=== PATIENT | female | born 2005 | race Caucasian/White ===

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

== ENCOUNTER 2025-03-17 17:30 | Emergency (ER) | payer OTHER, SELFPAY ==
[2025-03-17 17:33] VITALS: BP 130/79; PULSE 76; TEMP 36.7; O2SAT 98; BMI 23.2
--- NOTE | 2025-03-17 17:47 | XR_ITS ---
The [address] [address] Patient Name: CHI DANIELS MRN: [id number] date: 2005 Sex: F Assigned Patient Location: ER Current Patient Location: Accession/Order Number: [id number] Exam Date: 03/17/2025 17:56 Report Date: 03/17/2025 19:36 At the request of: ERNA BRITTON Procedure: XR chest 1V PA CHEST: CLINICAL HISTORY: Cough, purulent sputum COMPARISON: 06/18/2024 Findings: Unremarkable cardiomediastinal silhouette. Lungs are clear. No effusion or pneumothorax. XR/XR chest 1V IMPRESSION: NEGATIVE FOR ACUTE PLEURAL-PARENCHYMAL DISEASE Impression dictated by: Jonah Zapata M.D. 03/17/2025 7:36 PM Dictation Location: [place] [address] Electronically authenticated by: [id number] Y Date: 03/17/2025 19:36
--- NOTE | 2025-03-17 17:51 | ED_ITS ---
HPI HPI - General Adult General Chief complaint: Upper Respiratory Infection Stated complaint: VOMITING, FEVER, COUGH, Time Seen by Provider: 03/17/25 17:40 Source: patient Mode of arrival: walk-in History of Present Illness HPI narrative: Patient is a 19-year-old female who presents with 2 weeks of sneezing and nausea, in the past 2 days she started to vomit approximately 4-5 times. She has not vomited today and has been able to keep down p.o. fluids and food. She also has a sore throat, cough, runny nose, and reports she had a fever yesterday, did not take her temperature. Last period was 4 weeks ago. Related Data Home Medications ?Medication ?Instructions ?Recorded ?Confirmed No Known Home Medications 03/17/2502/21 Allergies Allergy/AdvReac Type Severity Reaction Status Date / Time No Known Drug Allergies Allergy Verified 03/17/25 17:33 Opioid HPI Opioid Management Most Recent Opioid Data: Last Pain Scale 9 Today, 17:39 Last ED Pain Assessment Today, 17:39 Ur Phencyclidine Scrn, (NEGATIVE) Negative , 15:38 Review of Systems ROS Status of ROS 10 or more systems reviewed and unremark able except as noted in history and below PFSH PFS Medical History (Updated 03/17/25 @ 18:57 by TOBI Flores) Asthma ?J45.909 - Unspecified asthma, uncomplicated (ICD-10) No pertinent past medical history ?Z78.9 - Other specified health status (ICD-10) Surgical History (Updated 02/07/23 @ 12:48 by Bill Gomez) No pertinent past surgical history ?Z78.9 - Other specified health status (ICD-10) Social History (Updated 03/17/25 @ 17:39 by Andreea Rodriguez RN) Smoking status: Current every day smoker Non-prescribed substance use: cannabis (any form) Little interest or pleasure in doing things: not at all Feeling down, depressed, or hopeless: not at all Exam Narrative Exam Narrative: General: No distress, age-appropriate Skin: Warm, dry, no pallor. No rash. Head: Normocephalic, atraumatic. Neck: Supple, non-tender. Eye: Pupils are equal, round and EOMI. No scleral icterus. Ears, Nose, Mouth, and Throat: TMs pearly mckeon and intact, no signs of infection. No nasal mucosal hypertrophy. Oral mucosa is moist, mild posterior oropharynx erythema, no tonsillar exudates, uvula is mid-line Cardiovascular: Regular Rate and Rhythm without murmur, gallop or rub. Respiratory: No accessory muscle use or respiratory distress. Lungs are clear to auscultation, no wheezing, rales, mild rhonchi bilaterally, cleared with cough Chest Wall: no tenderness Musculoskeletal: Full ROM of all extremities, no calf or popliteal tenderness GI: Abdomen is soft, non-distended, non tender to palpation. No masses appreciated. No rebound, guarding, or rigidity noted. Neurological: A&O x4. No cranial nerve dysfunction observed. No truncal a taxia. Moves all extremities. Sensation intact. Psychiatric: Cooperative and interactive. Normal mood and affect. Constitutional Vital Signs, click to edit/add: Last Vital Signs Temp 98.0 F 03/17/25 17:33 Pulse 76 03/17/25 17:33 Resp 18 03/17/25 17:33 BP 130/79 03/17/25 17:33 Pulse Ox 98 03/17/25 17:33 O2 Del Method Room Air 03/17/25 17:33 Documenting provider has reviewed patient's vital signs: yes Course Vital Signs Vital signs: Vital Signs Temperature 98.0 F 03/17/25 17:33 Pulse Rate 76 03/17/25 17:33 Respiratory Rate 18 03/17/25 17:33 Blood Pressure 130/79 03/17/25 17:33 Pulse Oximetry 98 03/17/25 17:33 Oxygen Delivery Method Room Air 03/17/25 17:33 Temperature 98.0 F 03/17/25 17:33 Pulse Rate 76 03/17/25 17:33 Respiratory Rate 18 03/17/25 17:33 Blood Pressure 130/79 03/17/25 17:33 Pulse Oximetry 98 03/17/25 17:33 Oxygen Delivery Method Room Air 03/17/25 17:33 Medical Decision Making MDM Narrative Medical decision making narrative: 19-year-old female presents with 2 weeks of upper respiratory symptoms including sneezing, sore throat, cough, rhinorrhea, and nausea, with vomiting over the past 2 days (4?5 episodes/day), now improved and able to tolerate oral intake. Patient reports concern about coughing up green mucus. She is afebrile, hemodynamically stable, and in no acute distress. Chest X-ray shows no infiltrates or effusion. COVID-19, influenza, and Group A strep tests are negative. The green mucus is most likely due to viral upper respiratory infection rather than bacterial pneumonia, given the absence of fever, hypoxia, or consolidation on imaging. Symptoms are consistent with post-viral bronchial secretions; antibiotics not indicated at this time. Patient counseled on supportive care including hydration, antitussives as needed, nasal saline, and monitoring for red-flag symptoms. Return precautions reviewed for worsening cough, persistent fever, shortness of breath, or inability to tolerate oral int mahin. Patient discharged in stable condition with plan for follow-up with PCP. Differential Diagnosis Differential Diagnosis: Viral URI, PNA, Strep Pharyngitis, COVID, Influenza Lab Data Lab results reviewed: Yes I reviewed the patient's lab results Labs: Lab Results 03/17/25 Range/Units 17:52 Influenza Type A Ag Negative Influenza Type B Ag Negative SARS-CoV-2 Ag (CV2AG) Negative (NEGATIVE) Streptococcus Screen Negative Imaging Data Chest x-ray: Attestation: I have reviewed the pertinent imaging results. Radiologist's impression: ITS Impressions Chest X-Ray 03/17/25 17:47 IMPRESSION: NEGATIVE FOR ACUTE PLEURAL-PARENCHYMAL DISEASE Impression dictated by: Jonah Zapata M.D. 03/17/2025 7:36 PM Dictation Location: [place] [id number] Electronically authenticated by: [id number] Y Date: 03/17/2025 19:36 Discharge Plan Discharge Chief Complaint: Upper Respiratory Infection Clinical Impression: Upper respiratory infection Patient Disposition: Home, Self-Care Time of Disposition Decision: 18:55 Condition: Good Mode of Transportation: Private Vehicle Prescriptions / Home Meds: No Action No Known Home Medications Print Language: [place]an Instructions: Upper Respiratory Infection (ED) Additional Instructions: * Hydration: Drink plenty of fluids (water, electrolyte drinks). * Fever / Pain: * Acetaminophen 650?1000 mg every 6 hours as needed * OR ibuprofen 400?600 mg every 6?8 hours with food * Cough / Congestion: * Saline nasal spray * Humidifier or steam * Throat lozenges or warm tea with honey * Diet: Start with bland foods and advance as tolerated. What to Expect This illness is most consistent with a viral infection. Symptoms such as cough, congestion, sore throat, and mild nausea may continue for several days but should gradually improve. Follow-Up * Follow up with your primary care provider in 3?5 days or sooner if symptoms are not improving. Return to the ER Immediately If You Develop: * Persistent vomiting or inability to keep fluids down * Signs of dehydration (dizziness, very little urine, dry mouth) * Worsening breathing problems, shortness of breath, chest pain * High fever that does not improve with medication * Severe abdominal pain * Any new or concerning symptoms Referrals: Arthur Agrawal MD [Primary Care Provider, [facility]] - 1 week Discharge Date/Time: 03/17/25 19:10
[2025-03-17 18:14] LABS: SARS-CoV-2 Ag NEGATIVE (NEGATIVE)
--- OUTSIDE RECORDS SUMMARY | 2025-03-17 18:17 | XMS_ITS | CCD ---
Author Organization [facility] Care Team Providers Care Rheumatologist Name Role Phone TED, DR ARTHUR Parker Admitting Unavailable NADERER, DR ARTHUR Parker Primary Care Unavailable NADERER, DR ARTHUR Parker Consulting Unavailable NADERER, DR ARTHUR Parker Attending Unavailable AP TRAN Admitting Unavailable NADERER, DR ARTHUR Parker Primary Care Unavailable CHELSEA, AP Consulting Unavailable AP TRAN Attending Unavailable NADERER, DR ARTHUR Parker Admitting Unavailable NADERER, DR ARTHUR Parker Primary Care Unavailable Ziebtawana, DR Peña Consulting Unavailable NADERER, DR ARTHUR Parker Attending Unavailable NADERER, DR ARTHUR Parker Consulting Unavailable NADERER, DR ARTHUR Parker Admitting Unavailable NADERER, DR ARTHUR Parker Primary Care Unavailable Ziebtawana, DR Peña Consulting Unavailable NADERER, DR ARTHUR Parker Attending Unavailable NADERER, DR ARTHUR Parker Consulting Unavailable Bishnu, Nay Consulting Unavailable NADERER, DR ARTHUR Parker Admitting Unavailable NADERER, DR ARTHUR Parker Primary Care Unavailable NADERER, DR ARTHUR Parker Attending Unavailable EDNA, ARY Urbano Attending Unavailable NADERER, ARTHUR Referring Unavailable TED, ARTHUR Primary Care Unavailable Arthur Agrawal MD Primary Care Provider [phone] Arthur Agrawal Primary Care Unavailable Brooks Perdomo Admitting Unavailable Brooks Perdomo Attending Unavailable Medications Current Medications MedicationDrug Class(es)DatesSig (Normalized)Sig (Original)[id number] 200 actuat albuterol 0.09 mg/actuat metered dose inhaler (6 sources)beta2-Adrenergic AgonistStart: 55-36-0041sqvr 2 puff(s) by inhalation every four hours for wheezingalbuterol HFA 90 mcg/act inhaler Inhale 2 puffs every 4 (four) hours if needed for shortness of breath or wheezing 05/21/2023 ActiveStart: 20-02-2072ypyw 1 puff(s) by inhalation every six hoursAlbuterol Sulfate (Ventolin Hfa) 90 mcg/actuation Hfa Aerosol Inhaler Active 2 PUFF INHALATION Q6H 1 May 21, 2023 12:00amStart: 05-17-2023 End: 74-27-3592amaz 1 puff(s) by inhalation every four hoursAlbuterol Sulfate Discontinued 1 PUFF INHALATION Q4H May 17, 2023 12:00am May 21, 2023 10:59amcephalexin 500 mg oral capsule (1 source)Cephalosporin AntibacterialStart: 98-12-1841jrwk 500 mg by mouth every eight hoursCephalexin Active 500 MG PO Every 8 hours May 21, 2023 12:00amcitalopram 10 mg oral tablet (2 sources)Serotonin Reuptake InhibitorStart: 75-05-9941jqze 1 tablet by mouth once dailycitalopram (CeleXA) 10 MG tablet Indications: Bipolar 1 disorder, mixed, moderate (CMS/HCC) Take 1 tablet (10 mg) by mouth Daily 30 tablet 2 01/15/2024 ActivepredniSONE 50 mg oral tablet (2 sources)Start: 01-15-2024 End: 23-49-2056bfmb 1 tablet by mouth once dailypredniSONE (Deltasone) 50 MG tablet Indications: Contusion of lumbar spinal region Take 1 tablet (50 mg) by mouth Daily for 6 days 6 tablet 01/15/2024 01/21/2024 ActiveQUEtiapine 25 mg oral tablet (2 sources)Atypical AntipsychoticStart: 01-21-1680ggsc 1 tablet by mouth at bedtimeQUEtiapine (SEROquel) 25 MG tablet Indications: Bipolar 1 disorder, mixed, moderate (CMS/HCC) Take 1 tablet (25 mg) by mouth at bedtime 30 tablet 2 01/15/2024 Active Completed/Discontinued Medications MedicationDrug Class(es)DatesSig (Normalized)Sig (Original)ARIPiprazole 5 mg oral tablet (4 sources)Atypical AntipsychoticStart: 07-16-2022 End: 82-81-4205tprd 1 tablet by mouth in the morningARIPiprazole (Abilify) 5 MG tablet Take 1 tablet by mouth in the morning. 07/16/2022 01/15/2024 Discontinued escitalopram 10 mg oral tablet (4 sources)Serotonin Reuptake InhibitorStart: 07-16-2022 End: 91-87-3652mdgt 1 tablet by mouth in the morningescitalopram (Lexapro) 10 MG tablet Take 1 tablet by mouth in the morning. 07/16/2022 01/15/2024 Discontinued omeprazole 40 mg delayed release oral capsule (4 sources)Proton Pump InhibitorStart: 07-16-2022 End: 58-26-5136bbwb 1 capsule by mouth in the morningomeprazole (PriLOSEC) [address] capsule Take 1 capsule by mouth in the morning. 07/16/2022 01/15/2024 Discontinuedondansetron 4 mg disintegrating oral tablet (4 sources)Serotonin-3 Receptor AntagonistStart: 02-07-2023 End: 37-00-9087xabr 1 tablet by mouth every eight hours as needed for vomiting and nauseaondansetron ODT (Zofran-ODT) 4 MG disintegrating tablet Take 1 tablet by mouth every 8 (eight) hours if needed for vomiting or nausea 02/07/2023 01/15/2024 Discontinuedsertraline 25 mg oral tablet (6 sources)Serotonin Reuptake InhibitorStart: 05-21-2023 End: 65-34-5222bdln 1 tablet by mouth in the morningsertraline (Zoloft) 25 MG tablet Indications: Depression, unspecified depression type (CMS/HCC) Take 1 tablet (25 mg) by mouth in the morning. 30 tablet 3 06/05/2023 01/15/2024 Discontinuedsulfamethoxazole 800 mg / trimethoprim 160 mg oral tablet (4 sources)Dihydrofolate Reductase Inhibitor Antibacterial, Sulfonamide AntimicrobialStart: 04-10-2023 End: 76-65-0927jbsn 1 tablet by mouth once in the morning, then take 1 tablet by mouth once at bedtimesulfamethoxazole-trimethoprim (Bactrim DS) 800-160 MG per tablet Take 1 tablet by mouth in the morning and 1 tablet before bedtime. 04/10/2023 01/15/2024 DiscontinuedtraZODone hydrochloride 50 mg oral tablet (6 sources)Serotonin Reuptake InhibitorStart: 05-21-2023 End: 12-78-7341layg 1 tablet by mouth at bedtimetraZODone (Desyrel) 50 MG tablet Indications: Depression, unspecified depression type (CMS/HCC) Take 1 tablet (50 mg) by mouth at bedtime 30 tablet 3 06/05/2023 01/15/2024 Discontinued Problems Active Problems Problem ClassificationProblemDateDocumented DateEpisodic/ChronicAnxiety disorders (5 sources)Anxiety disorder, unspecified; Translations: [Generalized anxiety disorder]Onset: 492278-04-0726ZpeknnuVcytki (3 sources)Unspecified asthma, uncomplicated; Translations: [Mild intermittent asthma]Onset: 041434-03-7761KfhufpwZmqulbgrfa disorders (2 sources)Gastroesophageal reflux disease without esophagitis; Translations: [Gastro-esophageal reflux disease without esophagitis]Onset: 01-15-2024 43-51-3717SwvkbduBzvohwaui (1 source)Influenza due to other identified influenza virus with other respiratory manifestations; Translations: [FLU D/T OTH ID FLU VIR OTH RSP MANF] Onset: 93-78-6588MjtbbccgCyjkvxnaitdgi mental health disorders (4 sources)Primary insomnia; Translations: [Primary insomnia]Onset: 01-15-2024 30-94-4348IbovpfvKxfr disorders (9 sources)Major depressive disorder; Translations: [Major depressive disorder, single episode, unspecified]Onset: 544625-84-2981RidulqdCqilf aftercare (1 source)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; Translations: [OTH INTERMEDIATE CURRENT DRUG THERAPY]Onset: 32-27-6777ZzcuaaarEyhkdqhmobx injury; contusion (4 sources)Contusion of lower back and pelvis, initial encounter; Translations: [Contusion of back]Onset: 608153-92-2720DiaqqnufIhjwyhxdphua (2 sources)COUGH, UNSPECIFIED; Translations: [COUGH, UNSPECIFIED]Onset: 41-30-7397Iqizualcwxur (3 sources)CONTACT W/AND (SUSP) EXPOS COVID-19; Translations: [CONTACT W/AND (SUSP) EXPOS COVID-19]Onset: 47-92-3589Rdyrh infection (1 source)COVID-19; Translations: [COVID-19]Onset: 05-04-2021 Past or Other Problems Problem ClassificationProblemDateDocumented DateEpisodic/ChronicAbdominal pain (4 sources)Epigastric pain; Translations: [EPIGASTRIC PAIN]Onset: 05-29-2021 EpisodicAdministrative/social admission (1 source)Problems related to education and literacy, unspecified; Translations: [Problems related to education and literacy, unspecified]Onset: 09-03-2022 EpisodicPancreatic disorders (not diabetes) (4 sources)Other specified diseases of pancreas; Translations: [OTHER SPECIFIED DISEASES PANCREAS]Onset: 06-97-8992UmtakyedIplwabanwteu (1 source)COUGH, UNSPECIFIED; Translations: [COUGH, UNSPECIFIED]Onset: 95-70-9680Ishuoajcgeds (1 source)CONTACT W/AND (SUSP) EXPOS COVID-19; Translations: [CONTACT W/AND (SUSP) EXPOS COVID-19]Onset: 04-28-2021 Results Test NameValueInterpretationReference RangeFacilityCovid-19 PCR (CVDTB)on 27-45-3921GVKK-CoV-2 (COVID-19) RNA MARYANA+probe Ql (Unsp spec)Not detectedNormal NOT DETECTEDThe [facility] HospitalComment on above:Result Comment: This test is not yet approved or cleared by the [place] FDA. When there are no FDA- approved or cleared tests available, and other criteria are met, FDA can make tests available under an emergency access mechanism called an Emergency Use Authorization (EUA). The EUA for this test is supported by the [place] of Health and Human Service's (HHS's) declaration [...] of clinical signs and symptoms consistent with SARS-CoV-2.Performed By: #### CVDTBH #### [facility] [address] [place] [address] Dr. Bea BOYCE AGon 46-45-7917SFLGCEFBEZPSD [facility] on above:Result Comment: Negative for Flu B protein antigen. Infection due to Flu B cannot be ruled out. FluB antigen in the sample may be below the detection limit of the test.Performed By: #### INFLUAB #### [facility] [address] [place] [address] Dr. Bea Parker AGPositiveAbnormalNEGATIVE SEE COMMENTThe [facility] on above:Performed By: #### INFLUAB #### [facility] [address] [place] [address] Dr. Bea Day AGNegativeNormalNEGATIVE SEE COMMENTThe [facility] on above:Performed By: #### INFLUAB #### [facility] [address] [place] [address] Dr. Bea SchmidtINFLUPOSHPARUL [facility] on above: Result Comment: NOTE: Live attenuated influenzae vaccine viruses can cause a positive result for a rapid influenza diagnostic test if administered up to 7 days prior to rapid testing.Performed By: #### INFLUAB #### [facility] [address] [place] [address] Dr. Bea SchmidtINTERNAL CONTROLSWithin Normal LimitsNormalWithin Normal Limits The [facility] on above:Performed By: #### INFLUAB #### [facility] [address] [place] [address] Dr. Bea SchmidtCT ABDOMEN W CONon 44-28-2206EL ABDOMEN W CONEXAMINATION: CT ABDOMEN W CON HISTORY: Disorder of [...] Electronically authenticated by: MARY VERDUGO Date: 2021-06-11 08:30NoK[facility] Health Greene MemorialUS SINGLE QUAD RT UPPERon 60-50-0560ZA SINGLE QUAD RT UPPER EXAM: US SINGLE [...] quadrant was unremarkable. Electronically authenticated by: NAY GODOY Date: 2021-05-29 07:54NoKettering Health Greene MemorialCovid-19 PCR (CVDTBH)on 44-48-4337WCPM-CoV-2 (COVID-19) RNA MARYANA+probe Ql (Unsp spec)DetectedCritically abnormalNOT DETECTEDThe [facility] HospitalComment on above:Result Comment: This test is not yet approved or cleared by the [place] FDA. When there are no FDA-approved or cleared tests available, and other criteria are met, FDA can make tests available under an emergency access mechanism called an Emergency Use Authorization (EUA). The EUA for this test is supported by the [place] of Health and Human Service's (HHS's) declaration [...] no longer be used). Performed By: #### CVDTBH #### [facility] [address] [place] [address] Dr. Bea Schmidt Vital Signs Date TimeVital SignValuePerforming OueqvuojjQmcwvmgu00-95-8336 13:44-0400Body ykbtrd743 cmMarritesh Agrawal MD Work Phone: [facility] HospitalLnmlvsidoz60-22-4737 13:44-0400Body mass index (BMI) [Percentile] Per age and sex42.79 %Arthur Agrawal MD Work Phone: [facility] HospitalWlixuxrnba97-99-6982 13:44-0400Body mass index (BMI) [Ratio]20.82 kg/m2Arthur Agrawal MD Work Phone: NOTwo [facility] HospitalBpnodxvszg54-33-5065 13:44-0400Body temperature 97.81 [degF]Arthur Agrawal MD Work Phone: [facility] HospitalQzhqsduiud64-76-4215 13:44-0400Body orvxzy57.06 kgArthur Agrawal MD Work Phone: NOTwo [facility] HospitalJjzbziuqyq39-00-8051 13:44-0400Diastolic blood mm[Hg]Arthur Agrawal MD Work Phone: NOTwo [facility] HospitalRtzwtizqri99-62-1424 13:44-0400Heart ucoh881 /min Arthur Agrawal MD Work Phone: NOTwo [facility] HospitalCuccinkppi66-30-1476 13:44-0400Respiratory rate22 /minArthur Agrawal MD Work Phone: noTwo [facility] Psych[facility] HospitalEaqxfeuyng34-14-0599 13:44-1406TiW5% (BldA) [Mass fraction]96 %Arthur Agrawal MD Work Phone: noTwo [facility] HospitalWnwhjgzieu86-73-3692 13:44-0400Systolic blood fjgcqzqa090 mm[Hg]Arthur Agrawal MD Work Phone: noTwo [facility] HospitalLgjvlmkyue67-60-1653 07:24-0500Body jqpfhobigmd78 [degF]01-30-2024 07:24-0500Diastolic blood uzssmpct61 mm[Hg]01-30-2024 07:24-0500Heart rate67 /[facility]01-30-2024 07:24-0500Respiratory rate16 /[facility]01-30-2024 07:24-6948ZrK2% (BldA) [Mass fraction]95 %01-30-2024 07:24-0500 Systolic blood ptqyqqft755 mm[Hg]01-29-2024 14:26-0500Body thutok998.64 cm01-29-2024 09:00-0500Body .3 kg Encounters Encounter DateEncounter TypeCare ProviderFacilityStart: 01-15-2024 End: 71-56-5151Avwccd flowsHyacinth Agrawal MD Work Phone: [facility]WM FMStart: 01-15-2024 End: 47-17-1487Ifsirg flowsHyacinth Agrawal MD Work Phone: [facility] CW FMStart: 01-15-2024 End: 79-41-4178Ewmhcz outpatient visit 25 minutesArthur Agrawal MD Work Phone: [facility]WM FMComment on above:Contusion of lumbar spinal region (Primary Dx); Bipolar 1 disorder, mixed, moderate (CMS/HCC); KEN (generalized anxiety disorder) (CMS/HCC); Primary insomniaStart: 92-52-5898GhhxtwObtkfme LykinsNOMS CWM FMComment on above:Depression, unspecified depression type (CMS/HCC) (Primary Dx)Start: 05-29-2023 End: 22-62-1548Yerytgfmzk and management of inpatientMarc Ted Facility:[facility]: 05-27-2023 End: 56-77-6196ppdhubqjugYLXB W SEYMOURProMedica Homestead HospitalStart: 13-81-2287Iow-patient / Non-visitFirelands Physician [facility] Work Phone: Start: 04-07-2022 End: 17-96-4475qtextjapkjPMKUCT RODRIGUEZFacility:K2Vqery: 06-10-2021 End: 00-02-5162znbqjamjclJQ ARTHUR Parker NADERERFacility:C5Uivay: 05-29-2021 End: 76-80-4019krmpnhpiplJQ ARTHUR Parker NADERERFacility:Y7Vwutm: 05-20-2021 End: 23-83-8846jheayhzrzsVO ARTHUR A NADERERFacility:H6Bhqqg: 04-28-2021 End: 97-30-6912dyyaxyexzeCX ATRHUR A NADERERFacility:H1 Procedures DateProcedureProcedure DetailPerforming ClinicianStart: 38-89-6799Tgxdzf-up visitFollow-upMARK W EDNA Plan of Treatment DateCare ActivityDetailAuthorStart: 03-16-2024 End: 62-76-2777Uenlbwg encounter soazakqrd97/25/2024 2:00 PM EST Office Visit [facility] [address] [place] [address] Arthur Agrawal MD [address] [place] [address] NOMJuan Jose COLEMAN FMStart: 01-15-2024 End: 48-88-9045Wuoamya encounter xbsagthml24/25/2024 1:45 PM EDT Office Visit [facility] [address] [place] [address] Arthur Agrawal MD [address] [place] [address] ArrivedNOMS CWM FMComment on above:ArrivedStart: 12-11-0117Mrdpixizk vaccinationInfluenza Vaccine (#1)[facility] HealthcareStart: 06-19-2023 End: 30-42-1293Vjtacuy encounter tydwzcuom39/28/2024 1:45 PM EST Office Visit [facility] [address] [place] [address] Arthur Agrawal MD [address] [place] [address] [facility] FMStart: 82-55-2406IsijhnkbnWadsworth-Rittman Hospitaltart: 95-77-3727Distxwou to Social ServicesWadsworth-Rittman Hospitaltart: 73-09-0216Kvpjnjqn admissionWadsworth-Rittman Hospitaltart: 12-21-2022 Influenza vaccinationInfluenza Vaccine (#1)[facility] HealthcarePatient Education Depression, Child and Teen (DC) [facility]ructionsG[facility] Work Phone: Patient referralGlenbeigh Hospital [facility]tr Work Phone: Immunizations Immunization DateImmunizationNotesCare ZvksovmnKusmgcmt36-01-4776fzglkdlka virus vaccine, unspecified formulationCourt [facility] Payers DatePayer CategoryPayerPolicy [id number]-[id number] Health [id number] Health InsuranceUNMERCY [facility] [id number] 2022-Present [address] [address] [place] [id number] 2020Medicaid [employer] [place] [employer] [id number] 2019-Present [address] [place] [id number] 2.16.840.1.447185.3.57[id number] 2.16.840.1.738616.3.57[id number] 2.16.840.1.945237.3.57[id number] 2..840.1.029949.3.579.[id number] 2.16.840.1.093744.3.57[id number] 2.16.840.1.372487.3.579.2.531 Social History DateTypeDetailFacilityStart: 05-18-2023 End: 56-88-8223Wtdqaee smoking status NHISNever smoked tobacco (finding) [facility]: 60-40-9010Xwf Assigned At BirthFemale [facility] Hospitaltart: 63-84-8580Htaqgwg use and exposure Smokeless tobacco non-userNOMS HealthcareStart: 05-22-2023 End: 62-43-2123Rlgdyxk of Social functionNOMS HealthcareStart: 05-22-2023 End: 25-30-2336Pbopwza use panelNOMS HealthcareStart: 42-56-9067Bje Assigned At BirthNot on fileNOIA Healthcare History of Present illness Narrative 01-15-2024 Note Date & YttiNyldHqfszcdu63-75-7953 History of Present illness Narrative* Arthur Agrawal MD - 01/15/2024 2:15 PM EDTAssociated Problem(s): Primary insomnia Not sleeping well and start seroquel. * Arthur Agrawal MD - 01/15/2024 2:15 PM EDTAssociated Problem(s): KEN (generalized anxiety disorder) (CMS/HCC) Severe symptoms and start seroquel and prozac. Warned will take 2-3 weeks to see improvement in mood. * Arthur Agrawal MD - 01/15/2024 2:14 PM EDTAssociated Problem(s): Contusion of lumbar spinal region Recent fall and likely bruise. Treat with prednisone. Ice and use OTC PRN. * Arthur Agrawal MD - 01/15/2024 2:14 PM EDTAssociated Problem(s): Bipolar 1 disorder, mixed, moderate (CMS/HCC) Patient's history consistent with bipolar and start seroquel. Start prozac for depressive symptoms.Warned will take 2-3 weeks to see improvement in mood. * Arthur Agrawal MD - 01/15/2024 1:45 PM EDT Images from the original note were not included. Subjective Patient ID: Maximilian Brewer is a 18 y.o. female who presents for Back Pain (Fell 2 weeks ago). C/o back pain for 2 weeks. Patient passed out and landed on paint can. Pain and bruising on mid lumbar region. Pain with movement such as bending or lifting. No radiation into gluteal region or down legs. Pain to walk or stand. Using ice and tylenol. No improvement since injury. Mood worse. No medication for months because didn't help. Reports episodes of zina. Awake for several days in a row and not tired. Very hyper and restless. Impulsive and hard to control self. Typically followed by severe depression. Down, sad, and no motivation. Not want to do things or be around others. Severe anxiety. Nervous and worry all the time. Stressed out and overwhelmed. Thought racing and hard to clear mind. Steward, irritable and snapping at others. Easily upset and overreact. Not sleeping well and lay in bed for hours. Hard to clear mind to fall asleep. Review of Systems Respiratory: Negative for cough, shortness of breath and wheezing. Cardiovascular: Negative for chest pain and palpitations. Gastrointestinal: Negative for abdominal pain, diarrhea, nausea and vomiting. Genitourinary: Negative for dysuria. Objective Physical Exam Constitutional: General: She is not in acute distress. Appearance: Normal appearance. HENT: Head: Normocephalic. Right Ear: Tympanic membrane normal. Left Ear: Tympanic membrane normal. Eyes: Extraocular Movements: Extraocular movements intact. Pupils: Pupils are equal, round, and reactive to light. Cardiovascular: Rate and Rhythm: Normal rate and regular rhythm. Heart sounds: No murmur heard. No friction rub. No gallop. Pulmonary: Effort: Pulmonary effort is normal. Breath sounds: Normal breath sounds. No wheezing, rhonchi or rales. Abdominal: General: Bowel sounds are normal. There is no distension. Palpations: Abdomen is soft. Tenderness: There is no abdominal tenderness. There is no guarding or rebound. Musculoskeletal: Cervical back: Neck supple. Right lower leg: No edema. Left lower leg: No edema. Neurological: Mental Status: She is alert. Assessment/Plan Problem List Items Addressed This Visit Bipolar 1 disorder, mixed, moderate (CMS/HCC) Patient's history consistent with bipolar and start seroquel. Start prozac for depressive symptoms.Warned will take 2-3 weeks to see improvement in mood. Relevant Medications citalopram (CeleXA) 10 MG tablet QUEtiapine (SEROquel) 25 MG tablet KEN (generalized anxiety disorder) (CMS/HCC) Severe symptoms and start seroquel and prozac. Warned will take 2-3 weeks to see improvement in mood. Primary insomnia Not sleeping well and start seroquel. Contusion of lumbar spinal region - Primary Recent fall and likely bruise. Treat with prednisone. Ice and use OTC PRN. Relevant Medications predniSONE (Deltasone) 50 MG tablet documented in this [facility] Discharge instructions 05-21-2023 Note Date & WaenHewnHrbnylcj30-27-8392 Hospital Discharge instructions Additional Instructions Important Contact Information You can call Inpatient Behavioral Health at [phone] any time day or night if you have emergent questions or question regarding discharge instructions. If at any time you are feeling an increase in your psychiatric symptoms, call your physician or behavioral healthcare provider. If any time you have thoughts of harming yourself or others contact one of the following: Call 9-8-8 (available 12/11) Crisis Text Line (available 12/11) text 4HOPE to [phone] Prized Line (available 8 a.m. Midnight) call [phone] ([phone]) [facility] Work Phone: Clinical Note 05-29-2021 Note Date & YymoSxnuWitlbzvo00-92-1644 NotePROCEDURE: XR GI UPPER AIR KUB DUAL CONTRAST, XR CINERADIOGRAPHY COMPARISON: [...] Electronically authenticated by: MARY VERDUGO Date: 2021-05-29 08:[address] [place] [address] Clinical Note 05-29-2021 Note Date & BrdtScqpFxkcwyck78-66-2779 NotePROCEDURE: XR GI UPPER AIR KUB DUAL CONTRAST, XR CINERADIOGRAPHY COMPARISON: [...] Electronically authenticated by: MARY VERDUGO Date: 2021-05-29 08:12[facility] Evaluation note Note Date & TypeNoteFacilityEvaluation note* Diagnosis Onset Date Resolution Status MDD (major depressive disorder) [facility] Work Phone: Evaluation note Note Date & TypeNoteFacilityEvaluation note* Diagnosis Depression, unspecified depression type (CMS/HCC)- Primary documented in this encounter [facility] Healthcare Evaluation note Note Date & TypeNoteFacilityEvaluation note* Diagnosis Contusion of lumbar spinal region- Primary Bipolar 1 disorder, mixed, moderate (CMS/HCC) KEN (generalized anxiety disorder) ([facility]) Generalized anxiety disorder Primary insomnia Persistent disorder of initiating or maintaining sleep documented in this encounter [facility] Healthcare Summary Purpose Family History No Family History Records Found Relationship Condition Age at Onset Recorded Date/T sanjuana Not Specified Attention deficit disorder Unknown Attention deficit hyperactivity disorder (ADHD)UnknownAnxietyUnknownBipolar disorderUnknownfatherSchizophreniaUnknown Advance Directives No Advanced Directives Records Found Advance Directive Response Recorded Date/ Time Advance Directives No May 17, 2023 4:42pm Chief Complaint and Reason for Visit Chief Complaint Major Depression-uns pecified Reason for Visit MDD (major depressiv e disorder) Additional Source Comments INFORMATION SOURCE (unrecogn ized section and content) DATE CREATED AUTHOR 04/13/2022 [facility] DATE CREATED AUTHOR AUTHOR'S ORGANIZ ATION 06/01/2023 [facility] DATE CREATED AUTHOR AUTHOR'S ORGANIZ ATION 11/13/2023 [place] DATE CREATED AUTHOR AUTHOR'S ORGANIZ ATION 06/28/2024 [facility] Care Teams (unrecognized sec tion and content) Team Status: Active Member Role Status Dates Arthur Agrawal MD Primary Care Provider Active Team Status: Active Member Role Status Dates Arthur Agrawal MD Primary Care Provider Active S tart: May 17, 2023 Brooks Conor , MDAdmit Provider, Attending Provider, Other ProviderActive Start: May 17, 2023 Team MemberRelationshipSpecialtyStart DateEnd Date Arthur Agrawal MD [address] [place] [phone] [facility]/22/23Team MemberRelationshipSpecialtyStart DateEnd Date Arthur Agrawal MD [address] [place] [phone] [facility] - [facility] [place]/23Team MemberRelationshipSpecialtyStart DateEnd Date Arthur Agrawal MD [address] [place] [phone] PCP - [facility]05/22/23 Goals (unrecognized section and content) Goals may be documented in a n alternate section Reason for Visit (unrecogniz ed section and content) ReasonOnset DateCommentsMed [id number] PainFell 2 weeks ago FOR RECORDS PERTAINING TO PATIENTS WHO ARE [...] BE BASED ON THE PRIMARY CLINICAL RECORDS. [facility]. provides no warranty or guarantee of the accuracy or completeness of information in this document.
--- OUTSIDE RECORDS SUMMARY | 2025-03-17 18:19 | XMS_ITS | Clinical Summary ---
Author Organization [facility] Healthcare Address [address] [place] [address] Care Team Providers Care Smelter Operator Name Role Phone Arthur Agrawal MD Primary Care Provider [phone] Allergies No known active allergies Medications MedicationSigDispense QuantityRefillsLast FilledStart DateEnd DateStatus albuterol HFA 90 mcg/act inhaler Inhale 2 puffs every 4 (four) hours if needed for shortness of breath or emufkbub70/30/2024ctive citalopram (CeleXA) 10 MG tablet Indications:Bipolar 1 disorder, mixed, moderate (HCC)Take 1 tablet (10 mg) by mouth Daily 30 tablet ctive QUEtiapine (SEROquel) 25 MG tablet Indications:Bipolar 1 disorder, mixed, moderate (HCC)Take 1 tablet (25 mg) by mouth at bedtime 30 tablet ctive Active Problems ProblemNoted DateDiagnosed DateOvarian cyst03/27/2024ipolar 1 disorder, mixed, ytjehxbt84/25/2024 Assessment & Plan (01/15/2024 2:14 PM EDT): Patient's history consistent with bipolar and start seroquel. Start prozac for depressive symptoms.Warned will take 2-3 weeks to see improvement in mood. KEN (generalized anxiety disorder)01/15/2024 Assessment & Plan (01/15/2024 2:15 PM EDT): Severe symptoms and start seroquel and prozac. Warned will take 2-3 weeks to see improvement in mood. Mild intermittent asthma without mgjylnqvobvh99/25/2024Gastroesophageal reflux disease without hykluuwkqvb00/25/2024rimary phmakbag83/25/2024 Assessment & Plan (01/15/2024 2:15 PM EDT): Not sleeping well and start seroquel. Contusion of lumbar spinal elunjl2701/15/2024 Assessment & Plan (01/15/2024 2:14 PM EDT): Recent fall and likely bruise. Treat with prednisone. Ice and use OTC PRN. Family History Medical HistoryRelationNameCommentsDepressionMotherRelationNameStatusComments Mother Social History Tobacco UseTypesPacks/DayYears UsedDateSmoking Tobacco: NeverSmokeless Tobacco: Never Tobacco Cessation:Counseling Given: Not Answered CommentsUnknownSex and Gender InformationValueDate RecordedSex Assigned at BirthNot on fileLegal SskJtwlfy80/15/2023 7:12 PM EDTGender IdentityNot on fileSexual OrientationNot on file Last Filed Vital Signs Vital SignReadingTime TakenCommentsBlood Mbjljezw792/56001/15/2024 1:44 PM EDT Tzznr51608/25/2024 1:44 PM LFUHvnvlafddsi08.6 ??C (97.8 ??F)01/15/2024 1:44 PM EDTRespiratory Jixp173501/15/2024 1:44 PM EDTOxygen Pekengjoeu10%01/15/2024 1:44 PM EDTInhaled Oxygen Concentration--Vckule91.1 kg (128 lb)01/15/2024 1:44 PM EDT Gszdsn736 cm (5' 5.75 )01/15/2024 1:44 PM EDTBody Mass Index20.8201/15/2024 1:44 PM EDTBody Mass Index Mlxgeidjay36.79%01/15/2024 1:44 PM EDTGrowth Chart: CDC (Girls, 2-20 Years) Plan of Treatment [place] [id number] Care Teams Team MemberRelationshipSpecialtyStart DateEnd Date Arthur Agrawal MD PCP - GeneralFamily Medicine05/22/23
--- OUTSIDE RECORDS SUMMARY | 2025-03-17 18:19 | XMS_ITS | Clinical Summary ---
Author Organization [facility] Address [id number] [address] [place] [address] Care Team Providers Care Export Sales Assistant Name Role Phone Arthur Agrawal MD Primary Care Provider [phone] Allergies No known active allergies Active Problems ProblemNoted DateDiagnosed DateSevere recurrent major depression with psychotic empheber73/15/3970Ooejybv68/15/2023School ehmxvxo3809/03/2022 Overview (09/03/2022): [place] Social History Tobacco UseTypesPacks/DayYears UsedDateSmoking Tobacco: Never AssessedChildcare AnswerDate ZxhcwfktTbvggarjgKurshal78/10/2019EmploymentAnswerDate Recorded JynmqxoawsClvcfrn60/10/2019Hunger ScreeningAnswerDate RecordedWithin the past 12 months we worried whether our food would run out before we got money to buy more.Never True03/29/2023Within the past 12 months the food we bought just didn't last and we didn't have money to get more.Never True03/29/2023 CommentsUnknownSex and Gender InformationValueDate RecordedSex Assigned at Not on fileLegal OzhObkozv01/18/2022 12:01 PM ESTGender IdentityNot on file Sexual OrientationNot on file Last Filed Vital Signs Vital SignReadingTime TakenCommentsBlood Jmonsank284/7007 10:27 AM EDT Dskco612511/07/2022 10:27 AM EDTTemperature--Respiratory Rate--Oxygen Saturation-- Inhaled Oxygen Concentration--Btqecl34 kg (139 lb)11/07/2022 10:27 AM EDTHeight- -Body Mass Index-- Plan of Treatment Health MaintenanceDue DateLast DoneCommentsDepression Dfmgbzinc22/24/2018Tobacco Kryqbjfly18/24/2018Adult BMI Rdjjfefjp81/24/2024Influenza Tknhcsx1012/21/2024 03/06/2013, 05/13/2012DTaP,Tdap and Td Vaccines (7 - Td or Tdap)12/06/2027 12/05/2017, 08/15/2010, 08/09/2008, Additional history exists Medical Devices Not on file Insurance * Guarantor: Maximilian Brewer NAccount TypeRelation to PatientDate of BirthPhone Billing AddressPersonal/TjiktaJdcp40/24/[address] [place] [address] * Guarantor: Ann BrewerAccobubba TypeRelation to PatientDate of BirthPhone Billing AddressPersonal/OnfcvbNjxorb32/11/[address] [place] [address] Care Teams Team MemberRelationshipSpecialtyStart DateEnd Date Arthur Agrawal MD PCP - GeneralFaazly Medicine07/16/22
== END 2025-03-17 19:10 | disposition home or self-care (01) ==
PROVIDERS: Physician Assistant; Emergency Provider Emergency Medicine; PCP Family Medicine
DX: J06.9 Acute upper respiratory infection, unspecified (principal); F17.200 Nicotine dependence, unspecified, uncomplicated
CPT/HCPCS: 71045; 87070; 87804; 87811; 87880; 99285

== ENCOUNTER 2025-03-26 08:00 | Emergency (ER) | payer OTHER, SELFPAY ==
[2025-03-26 08:05] VITALS: BP 126/76; PULSE 70; TEMP 36.7; O2SAT 100; BMI 26.6
--- NOTE | 2025-03-26 08:19 | ED.GENADUL1 ---
HPI HPI - General Adult General Chief complaint: Dental/Oral Stated complaint: mouth pain Time Seen by Provider: 03/26/25 08:16 Source: patient Mode of arrival: walk-in History of Present Illness HPI narrative: 19-year-old female presents for pain on the inside of her right cheek. She states she believes she bit the inside of her cheek about a week ago and now its become a bit painful. No drainage. No swelling in her face and she does not complain of dental pain. Related Data Previous Rx's ?Medication ?Instructions ?Recorded ibuprofen 800 mg tablet 800 mg PO Q8H PRN pain #20 tabs 03/26/25 penicillin V potassium 250 mg 250 mg PO QID 10 days #40 tabs 03/26/25 tablet Allergies Allergy/AdvReac Type Severity Reaction Status Date / Time No Known Drug Allergies Allergy Verified 03/26/25 08:12 Opioid HPI Opioid Management Most Recent Opioid Data: Last Pain Scale 9 Today, 08:17 Last ED Pain Assessment Today, 08:17 Ur Phencyclidine Scrn, (NEGATIVE) Negative 07/28/24, 15:38 Review of Systems ROS Narrative A ten point review of systems is negative except as noted above. PFSH PFS Medical History (Updated 03/26/25 @ 08:19 by Socrates Byrd MD) Asthma ?J45.909 - Unspecified asthma, uncomplicated (ICD-10) No pertinent past medical history ?Z78.9 - Other specified health status (ICD-10) Surgical History (Updated 02/07/23 @ 12:48 by Bill Gomez) No pertinent past surgical history ?Z78.9 - Other specified health status (ICD-10) Social History (Updated 03/17/25 @ 17:39 by Andreea Rodriguez RN) Smoking status: Current every day smoker Non-prescribed substance use: cannabis (any form) Little interest or pleasure in doing things: not at all Feeling down, depressed, or hopeless: not at all Exam Narrative Exam Narrative: Nurses note and vital signs reviewed General:The patient appears well and in no apparent distress.Patient is resting comfortably on cart. Skin:Warm, dry, no pallor noted.There is no rash noted. Head:Normocephalic, atraumatic Eye: Normal conjunctiva, no drainage Ears, Nose, Mouth, and Throat: oral mucosa is moist. Nares patent. Mouth without vesicles. There is tenderness on the buccal mucosa on the right side. There are no skin lesions but there is some erythema. No purulent drainage. No dental pain on percussion. No gingival swelling or erythema or bleeding or pus present. No swelling to the floor of her mouth. Her parotid glands are not enlarged. There is no erythema externally or any swelling externally. Cardiovascular:Regular Rate and Rhythm Respiratory:Patient is in no distress, no accessory muscle use, lungs are clear to auscultation, no wheezing, rales or rhonchi Back:non-tender GI: Soft and nontender Musculoskeletal: The patient has no evidence of calf tenderness, no pitting edema, symmetrical pulses noted bilaterally Neurological:A&O, normal speech Psychiatric:Cooperative Constitutional Vital Signs, click to edit/add: Last Vital Signs Temp 98.0 F 03/26/25 08:05 Pulse 70 03/26/25 08:05 Resp 15 03/26/25 08:05 BP 126/76 03/26/25 08:05 Pulse Ox 100 03/26/25 08:05 O2 Del Method Room Air 03/26/25 08:05 Course Vital Signs Vital signs: Vital Signs Temperature 98.0 F 03/26/25 08:05 Pulse Rate 70 03/26/25 08:05 Respiratory Rate 15 03/26/25 08:05 Blood Pressure 126/76 03/26/25 08:05 Pulse Oximetry 100 03/26/25 08:05 Oxygen Delivery Method Room Air 03/26/25 08:05 Temperature 98.0 F 03/26/25 08:05 Pulse Rate 70 03/26/25 08:05 Respiratory Rate 15 03/26/25 08:05 Blood Pressure 126/76 03/26/25 08:05 Pulse Oximetry 100 03/26/25 08:05 Oxygen Delivery Method Room Air 03/26/25 08:05 Discharge Plan Discharge Chief Complaint: Dental/Oral Clinical Impression: Cellulitis Patient Disposition: Home, Self-Care Time of Disposition Decision: 08:18 Condition: Good Mode of Transportation: Private Vehicle Prescriptions / Home Meds: New penicillin V potassium 250 mg tablet 250 mg PO QID 10 Days Qty: 40 0RF ibuprofen 800 mg tablet 800 mg PO Q8H PRN (Reason: pain) Qty: 20 0RF Print Language: Cypriot Instructions: Cellulitis (ED) Referrals: Arthur Agrawal MD [Primary Care Provider, Family Practice] - 1 week
--- OUTSIDE RECORDS SUMMARY | 2025-03-26 08:25 | XMS_ITS | CCD ---
Author Organization [facility] Care Team Providers Care Machine Sorter Name Role Phone TED, DR ARTHUR Parker [...] Unavailable Arthur Agrawal MD Primary Care Provider Arthur Agrawal Primary Care Unavailable Brooks Perdomo Admitting Unavailable Brooks Perdomo Attending Unavailable Medications Current Medications MedicationDrug Class(es)DatesSig (Normalized)Sig (Original)[id number] 200 actuat albuterol 0.09 mg/actuat metered dose inhaler (6 sources)beta2-Adrenergic AgonistStart: 99-48-1440bxbk 2 puff(s) by inhalation every four hours for wheezingalbuterol HFA 90 mcg/act inhaler Inhale 2 puffs every 4 (four) hours if needed for shortness of breath or wheezing 05/21/2023 ActiveStart: 70-54-9570zsil 1 puff(s) by inhalation every six hoursAlbuterol Sulfate (Ventolin Hfa) 90 mcg/actuation Hfa Aerosol Inhaler Active 2 PUFF INHALATION Q6H 1 May 21, 2023 12:00amStart: 05-17-2023 End: 45-55-3565idhn 1 puff(s) by inhalation every four hoursAlbuterol Sulfate Discontinued 1 PUFF INHALATION Q4H May 17, 2023 12:00am May 21, 2023 10:59amcephalexin 500 mg oral capsule (1 source)Cephalosporin AntibacterialStart: 16-48-6923rdud 500 mg by mouth every eight hoursCephalexin Active 500 MG PO Every 8 hours May 21, 2023 12:00amcitalopram 10 mg oral tablet (2 sources)Serotonin Reuptake InhibitorStart: 01-21-8026vlau 1 tablet by mouth once dailycitalopram (CeleXA) 10 MG tablet Indications: Bipolar 1 disorder, mixed, moderate (CMS/HCC) Take 1 tablet (10 mg) by mouth Daily 30 tablet 2 01/15/2024 ActivepredniSONE 50 mg oral tablet (2 sources)Start: 01-15-2024 End: 57-72-2040iinc 1 tablet by mouth once dailypredniSONE (Deltasone) 50 MG tablet Indications: Contusion of lumbar spinal region Take 1 tablet (50 mg) by mouth Daily for 6 days 6 tablet 01/15/2024 01/21/2024 ActiveQUEtiapine 25 mg oral tablet (2 sources)Atypical AntipsychoticStart: 84-87-4749pimh 1 tablet by mouth at bedtimeQUEtiapine (SEROquel) 25 MG tablet Indications: Bipolar 1 disorder, mixed, moderate (CMS/HCC) Take 1 tablet (25 mg) by mouth at bedtime 30 tablet 2 01/15/2024 Active Completed/Discontinued Medications MedicationDrug Class(es)DatesSig (Normalized)Sig (Original)ARIPiprazole 5 mg oral tablet (4 sources)Atypical AntipsychoticStart: 07-16-2022 End: 22-69-9707zmin 1 tablet by mouth in the morningARIPiprazole (Abilify) 5 MG tablet Take 1 tablet by mouth in the morning. 07/16/2022 01/15/2024 Discontinued escitalopram 10 mg oral tablet (4 sources)Serotonin Reuptake InhibitorStart: 07-16-2022 End: 52-46-7427fdsp 1 tablet by mouth in the morningescitalopram (Lexapro) 10 MG tablet Take 1 tablet by mouth in the morning. 07/16/2022 01/15/2024 Discontinued omeprazole 40 mg delayed release oral capsule (4 sources)Proton Pump InhibitorStart: 07-16-2022 End: 99-35-7121onwa 1 capsule by mouth in the morningomeprazole (PriLOSEC) [address] capsule Take 1 capsule by mouth in the morning. 07/16/2022 01/15/2024 Discontinuedondansetron 4 mg disintegrating oral tablet (4 sources)Serotonin-3 Receptor AntagonistStart: 02-07-2023 End: 15-81-5809ebfo 1 tablet by mouth every eight hours as needed for vomiting and nauseaondansetron ODT (Zofran-ODT) 4 MG disintegrating tablet Take 1 tablet by mouth every 8 (eight) hours if needed for vomiting or nausea 02/07/2023 01/15/2024 Discontinuedsertraline 25 mg oral tablet (6 sources)Serotonin Reuptake InhibitorStart: 05-21-2023 End: 27-81-2875asbr 1 tablet by mouth in the morningsertraline (Zoloft) 25 MG tablet Indications: Depression, unspecified depression type (CMS/HCC) Take 1 tablet (25 mg) by mouth in the morning. 30 tablet 3 06/05/2023 01/15/2024 Discontinuedsulfamethoxazole 800 mg / trimethoprim 160 mg oral tablet (4 sources)Dihydrofolate Reductase Inhibitor Antibacterial, Sulfonamide AntimicrobialStart: 04-10-2023 End: 77-15-8585lulx 1 tablet by mouth once in the morning, then take 1 tablet by mouth once at bedtimesulfamethoxazole-trimethoprim (Bactrim DS) 800-160 MG per tablet Take 1 tablet by mouth in the morning and 1 tablet before bedtime. 04/10/2023 01/15/2024 DiscontinuedtraZODone hydrochloride 50 mg oral tablet (6 sources)Serotonin Reuptake InhibitorStart: 05-21-2023 End: 42-34-4394habt 1 tablet by mouth at bedtimetraZODone (Desyrel) 50 MG tablet Indications: Depression, unspecified depression type (CMS/HCC) Take 1 tablet (50 mg) by mouth at bedtime 30 tablet 3 06/05/2023 01/15/2024 Discontinued Problems Active Problems Problem ClassificationProblemDateDocumented DateEpisodic/ChronicAnxiety disorders (5 sources)Anxiety disorder, unspecified; Translations: [Generalized anxiety disorder]Onset: 361200-06-4882JjwntafZsovpm (3 sources)Unspecified asthma, uncomplicated; Translations: [Mild intermittent asthma]Onset: 452074-29-5916HuwaeogHnbsrcowfr disorders (2 sources)Gastroesophageal reflux disease without esophagitis; Translations: [Gastro-esophageal reflux disease without esophagitis]Onset: 01-15-2024 62-66-4325TnypepxKufyiqtfd (1 source)Influenza due to other identified influenza virus with other respiratory manifestations; Translations: [FLU D/T OTH ID FLU VIR OTH RSP MANF] Onset: 34-25-1338KgdpfdlyRzwjuxkizpepn mental health disorders (4 sources)Primary insomnia; Translations: [Primary insomnia]Onset: 01-15-2024 57-25-6586NgvpyzgJsgg disorders (9 sources)Major depressive disorder; Translations: [Major depressive disorder, single episode, unspecified]Onset: 929603-72-5046ZtdflvjEjjfs aftercare (1 source)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; Translations: [OTH DEVELOPMENT GEOLOGIST CURRENT DRUG THERAPY]Onset: 29-86-7252MoblgierAnuqigvljnn injury; contusion (4 sources)Contusion of lower back and pelvis, initial encounter; Translations: [Contusion of back]Onset: 649207-50-6907AmxywheaFhqfzavtsxnr (2 sources)COUGH, UNSPECIFIED; Translations: [COUGH, UNSPECIFIED]Onset: 75-63-8755Hgulfknbmuhy (3 sources)CONTACT W/AND (SUSP) EXPOS COVID-19; Translations: [CONTACT W/AND (SUSP) EXPOS COVID-19]Onset: 27-05-0370Mdnin infection (1 source)COVID-19; Translations: [COVID-19]Onset: 05-04-2021 Past or Other Problems Problem ClassificationProblemDateDocumented DateEpisodic/ChronicAbdominal pain (4 sources)Epigastric pain; Translations: [EPIGASTRIC PAIN]Onset: 05-29-2021 EpisodicAdministrative/social admission (1 source)Problems related to education and literacy, unspecified; Translations: [Problems related to education and literacy, unspecified]Onset: 09-03-2022 EpisodicPancreatic disorders (not diabetes) (4 sources)Other specified diseases of pancreas; Translations: [OTHER SPECIFIED DISEASES PANCREAS]Onset: 42-70-9995HgecouguXfxzkrwcjpif (1 source)COUGH, UNSPECIFIED; Translations: [COUGH, UNSPECIFIED]Onset: 19-80-3320Vleekgjbzfqo (1 source)CONTACT W/AND (SUSP) EXPOS COVID-19; Translations: [CONTACT W/AND (SUSP) EXPOS COVID-19]Onset: 04-28-2021 Results Test NameValueInterpretationReference RangeFacilityCovid-19 PCR (CVDTB)on 28-85-4895CQFL-CoV-2 (COVID-19) RNA MARYANA+probe Ql (Unsp spec)Not detectedNormal NOT DETECTEDThe [facility] MemorialComment on above:Result Comment: This test is not yet approved or cleared by the [place] FDA. When there are no FDA- approved or cleared tests available, and other criteria are met, FDA can make tests available under an emergency access mechanism called an Emergency Use Authorization (EUA). The EUA for this test is supported by the Biology Specimen Technician of Health and Human Service's (HHS's) declaration [...] consistent with SARS-CoV-2.Performed By: #### CVDTBH #### [facility] [address] [place] [address] Dr. Bea BOYCE AGon 03-42-4111TTJBRVGBWBVYO [facility] on above:Result Comment: Negative for Flu B protein antigen. Infection due to Flu B cannot be ruled out. FluB antigen in the sample may be below the detection limit of the test.Performed By: #### INFLUAB #### [facility] [address] [place] [address] Dr. Bea Parker AGPositiveAbnormalNEGATIVE SEE COMMENTThe [facility] on above:Performed By: #### INFLUAB #### [facility] [address] [place] [address] Dr. Bea Day AGNegativeNormalNEGATIVE SEE COMMENTThe [facility] on above:Performed By: #### INFLUAB #### [facility] [address] [place] [address] Dr. Bea SchmidtINFLUPOSHPARUL [facility]Com[facility] on above: Result Comment: NOTE: Live attenuated influenzae vaccine viruses can cause a positive result for a rapid influenza diagnostic test if administered up to 7 days prior to rapid testing.Performed By: #### INFLUAB #### [facility] [address] [place] [address] Dr. Bea SchmidtINTERNAL CONTROLSWithin Normal LimitsNormalWithin Normal Limits The [facility] on above:Performed By: #### INFLUAB #### [facility] [address] [place] [address] Dr. Bea SchmidtCT ABDOMEN W CONon 32-57-0802LV ABDOMEN W CONEXAMINATION: CT ABDOMEN W CON [...] Electronically authenticated by: MARY VERDUGO Date: 2021-06-11 08:30NoGuernsey Memorial HospitalUS SINGLE QUAD RT UPPERon 23-28-4182UW SINGLE QUAD RT UPPER EXAM: US SINGLE [...] Electronically authenticated by: NAY GODOY Date: 2021-05-29 07:54NoGuernsey Memorial HospitalCovid-19 PCR (CVDTBH)on 20-26-6280SBTV-CoV-2 (COVID-19) RNA MARYANA+probe Ql (Unsp spec)DetectedCritically abnormalNOT DETECTEDThe [facility] MemorialComment on above:Result Comment: This test is not yet approved or cleared by the [place] FDA. When there are no FDA-approved or cleared tests available, and other criteria are met, FDA can make tests available under an emergency access mechanism called an Emergency Use Authorization (EUA). The EUA for this test is supported by the [place] of Health and Human Service's (HHS's) declaration [...] be used). Performed By: #### CVDTBH #### [facility] [address] [place] [address] Dr. Bea Schmidt Vital Signs Date TimeVital SignValuePerforming MkemoxinzRfpspqql74-86-3523 13:44-0400Body cmMarritesh Agrawal MD Work Phone: [facility] CenterAhzxnioeqi82-90-1047 13:44-0400Body mass index (BMI) [Percentile] Per age and sex42.79 %Arthur Agrawal MD Work Phone: [facility] CenterJpdflbdrif72-22-3263 13:44-0400Body mass index (BMI) [Ratio]20.82 kg/m2Arthur Agrawal MD Work Phone: NOFreeman Health SystemGemnrmumaa68-78-0378 13:44-0400Body temperature 97.81 [degF]Arthur Agrawal MD Work Phone: [facility] CenterPuidcdumvw82-70-7245 13:44-0400Body lhoxsj51.06 kgArthur Agrawal MD Work Phone: NOFreeman Health SystemVcujkyucab99-89-0049 13:44-0400Diastolic blood cjorhres36 mm[Hg]Arthur Agrawal MD Work Phone: NOFreeman Health SystemRlcrarnlfn30-07-9805 13:44-0400Heart bskz075 /min Arthur Agrawal MD Work Phone: NOFreeman Health SystemIjrazokxnl37-41-3791 13:44-0400Respiratory rate22 /minArthur Agrawal MD Work Phone: noFreeman Health SystemTulvaffljx23-70-1523 13:44-4276YyL9% (BldA) [Mass fraction]96 %Arthur Agrawal MD Work Phone: noFreeman Health SystemFsaewwkavq17-77-2819 13:44-0400Systolic blood nbwaqyfl529 mm[Hg]Arthur Agrawal MD Work Phone: noFreeman Health SystemKhqymhalgf62-22-3785 07:24-0500Body ugiphxuhgoh35 [degF][facility]01-30-2024 07:24-0500Diastolic blood mdoshany48 mm[Hg][facility]01-30-2024 07:24-0500Heart rate67 /[facility]01-30-2024 07:24-0500Respiratory rate16 /[facility]01-30-2024 07:24-8456FtG1% (BldA) [Mass fraction]95 %[facility]01-30-2024 07:24-0500 Systolic blood acoshvlt488 mm[Hg][facility]01-29-2024 14:26-0500Body xjxxdi278.64 cmSelect [facility]01-29-2024 09:00-0500Body shzbce60.3 kgSelect [facility] Encounters Encounter DateEncounter TypeCare ProviderFacilityStart: 01-15-2024 End: 15-99-6341Eatcje flowsHyacinth Agrawal MD Work Phone: [facility] C[facility] FMStart: 01-15-2024 End: 70-47-5512Lcuudi flowsHyacinth Agrawal MD Work Phone: noms CW FMStart: 01-15-2024 End: 05-97-8262Czaoxg outpatient visit 25 minutesArthur Agrawal MD Work Phone: [facility] FMComment on above:Contusion of lumbar spinal region (Primary Dx); Bipolar 1 disorder, mixed, moderate (CMS/HCC); KEN (generalized anxiety disorder) (CMS/HCC); Primary insomniaStart: 53-30-9263XsxtsjBiquiio LykinsNOMS CWM FMComment on above:Depression, unspecified depression type (CMS/HCC) (Primary Dx)Start: 05-29-2023 End: 14-70-6515Zygfihzrur and management of inpatientMarc Ted Facility:[facility]: 05-27-2023 End: 36-96-3675nqreakdgljBXDV W SEYMOURProMedica Brule HospitalStart: 08-62-6167Nse-patient / Non-visitFirelands [facility] Work Phone: Start: 04-07-2022 End: 18-96-9997dpxxiookzgMGOCJV RODRIGUEZFacility:F1Mpspd: 06-10-2021 End: 95-38-4127xyaeambhreNU ARTHUR Parker NADERERFacility:G4Lehxd: 05-29-2021 End: 43-61-9039wsifqmnexpPU ARTHUR Parker NADERERFacility:S5Rityz: 05-20-2021 End: 18-96-7585heonwxqefuYI ARTHUR A NADERERFacility:G9Etlmf: 04-28-2021 End: 84-56-3524ykupbvzcqvVK ARTHUR A NADERERFacility:H1 Procedures DateProcedureProcedure DetailPerforming ClinicianStart: 96-22-9928Lwprfp-up visitFollow-upMARK W EDNA Plan of Treatment DateCare ActivityDetailAuthorStart: 03-16-2024 End: 58-77-7494Zeqvnnl encounter asewssedq59/25/2024 2:00 PM EST Office Visit [facility] [address] [place] [address] Arthur Agrawal MD [address] [place] [address] NOMJuan Jose COLEMAN FMStart: 01-15-2024 End: 65-39-5769Fechcda encounter bbhmgybed21/25/2024 1:45 PM EDT Office Visit [facility] [address] [place] [address] Arthur Agrawal MD [address] [place] [address] ArrivedNOMS CWM FMComment on above:ArrivedStart: 98-69-4198Uuzdzqqve vaccinationInfluenza Vaccine (#1)[facility] HealthcareStart: 06-19-2023 End: 64-14-9961Tfwmhux encounter ebsuobfky81/28/2024 1:45 PM EST Office Visit [facility] [address] [place] [address] Arthur Agrawal MD [address] [place] [address] [facility] FMStart: 13-58-1447RovzyqtfbAultman Orrville Hospitaltart: 92-56-7493Syldnyum to Social ServicesAultman Orrville Hospitaltart: 77-73-0099Ytqbahsk admissionAultman Orrville Hospitaltart: 12-21-2022 Influenza vaccinationInfluenza Vaccine (#1)[facility] HealthcarePatient Education Depression, Child and Teen (DC) [facility]ructionsSal[facility] Work Phone: Patient referralSalem Regional Medical Center [facility] Work Phone: Immunizations Immunization DateImmunizationNotesCare ZiaubvebIbvijnso93-74-4476jozbpozsp virus vaccine, unspecified formulationCourt [facility] Payers DatePayer CategoryPayerPolicy [id number] Health [id number] Health InsuranceUNSCCI HOSPITAL LIMA [id number] 2022-Present [address] [address] [place] [id number] 2020Medicaid [employer] [place] [employer] [id number] 2019-Present [address] [place] [id number] [id number] 2.16.840.1.866125.3.57[id number] 2.16.840.1.112926.3.57[id number] 2.16.840.1.270315.3.57[id number] 2..840.1.592476.3.57[id number] 2.16.840.1.626568.3.57[id number] 2.16.840.1.693929.3.579.2.531 Social History DateTypeDetailFacilityStart: 05-18-2023 End: 72-14-8467Auqmnha smoking status NHISNever smoked tobacco (finding) [facility]: 89-71-4150Qmj Assigned At BirthFemale [facility]: 69-77-7297Jfxhkkj use and exposure Smokeless tobacco non-userNOMS HealthcareStart: 05-22-2023 End: 17-98-1951Fxxqaph of Social functionNOMS HealthcareStart: 05-22-2023 End: 55-34-5422Xnborgm use panelNOMS HealthcareStart: 73-58-4331Pbn Assigned At BirthNot on fileNODC Healthcare History of Present illness Narrative 01-15-2024 Note Date & LbffIypgKgzhrind06-97-0479 History of Present illness Narrative* Arthur Agrawal [...] (Deltasone) 50 MG tablet documented in this [facility] [place] [facility] Discharge instructions 05-21-2023 Note Date & TqmxPhgmFtqqnflb06-96-9675 Hospital Discharge instructions Additional Instructions Important Contact Information You can call [facility] Inpatient Behavioral Health at [phone] any time day or night if you have emergent questions or question regarding discharge instructions. If at any time you are feeling an increase in your psychiatric symptoms, call your physician or behavioral healthcare provider. If any time you have thoughts of harming yourself or others contact one of the following: Call 9-8-8 (available 12/11) Crisis Text Line (available 12/11) text 4HOPE to [phone] [place] [employer] Line (available 8 a.m. Midnight) call [phone]) [facility] Work Phone: Clinical Note 05-29-2021 Note Date & ImhnGtibPkmqcqca76-20-9944 NotePROCEDURE: XR GI UPPER AIR KUB DUAL [...] Electronically authenticated by: MARY VERDUGO Date: 2021-05-29 08:[address] [place] [address] Clinical Note 05-29-2021 Note Date & MgkbLtcoEwqwtdvm44-97-5556 NotePROCEDURE: XR GI UPPER AIR KUB DUAL [...] authenticated by: MARY VERDUGO Date: 2021-05-29 08:12[facility] Evaluation note Note Date & TypeNoteFacilityEvaluation note* Diagnosis Onset Date Resolution Status MDD (major depressive disorder) [facility] Work Phone: Evaluation note Note Date & TypeNoteFacilityEvaluation note* Diagnosis Depression, unspecified depression type (CMS/HCC)- Primary documented in this encounter [facility] Healthcare Evaluation note Note Date & TypeNoteFacilityEvaluation note* Diagnosis Contusion of lumbar spinal region- Primary Bipolar 1 disorder, mixed, moderate (CMS/HCC) KEN (generalized anxiety disorder) ([facility] Generalized anxiety disorder Primary insomnia Persistent disorder of initiating or maintaining sleep documented in this encounter [facility] Healthcare Summary Purpose Family History No Family [...] and content) DATE CREATED AUTHOR 04/13/2022 [facility] DATE CREATED AUTHOR AUTHOR'S ORGANIZ ATION 06/01/2023 [facility] DATE CREATED AUTHOR AUTHOR'S ORGANIZ ATION 11/13/2023 [place] [facility] DATE CREATED AUTHOR AUTHOR'S ORGANIZ ATION 06/28/2024 [facility] Care Teams (unrecognized sec tion [...] Arthur Agrawal MD [address] [place] [address] [facility] - [facility]/23Team MemberRelationshipSpecialtyStart DateEnd Date Arthur Agrawal MD [address] [place] [address] [facility] - [facility]23Team MemberRelationshipSpecialtyStart DateEnd Date Arthur Agrawal MD [address] [place] [address] [facility]05/[facility]23 Goals (unrecognized section and content) Goals may be documented in a n alternate section Reason for Visit (unrecogniz ed section and content) ReasonOnset DateCommentsMed Zmtoks194ReasonCommentsBack PainFell 2 weeks ago FOR RECORDS PERTAINING [...] BE BASED ON THE PRIMARY CLINICAL RECORDS. [employer] provides no warranty or guarantee of the accuracy or completeness of information in this document.
== END 2025-03-26 08:30 | disposition home or self-care (01) ==
PROVIDERS: Emergency Provider Emergency Medicine; PCP Family Medicine
DX: K12.2 Cellulitis and abscess of mouth (principal); F17.200 Nicotine dependence, unspecified, uncomplicated
CPT/HCPCS: 99283